=== PATIENT | female | born 1970 | race Caucasian/White ===

== ENCOUNTER 2017-11-16 11:03 | Emergency (ER) | payer OTHER, MEDICAID ==
[~2017-11-16] VITALS: Ht 172.7 cm; Wt 113.4 kg
[~2017-11-16 11:03] MED LIST: FLEXERIL PO; HYDROCODONE-APA1 TA1 PO; IBUPROFEN 600600 M1 PO; IBUPROFEN 800800 MG PO; LIORESAL 10 MG10 MG PO; MACROBID 100 M100 M1 PO; MACROBID 100 M100 M2 PO; NOHOMEMEDICATIONS; NORCO 5-325 TA1 EACH PO; PRENATAL PO; PROMETHAZINE-D120 ML PO; PROVENTIL HFA6.7 G1 INH; SINUS NASAL SPR30 M1 NS; TL-FOL 500 CAP1 EACH PO; VISTARIL 25 MG25 M1 PO; ZOFRAN 4 MG ORAL4 MG PO; ZOFRAN4 MG PO
[2017-11-16] MEDS ORDERED: IBUPROFEN 200200 M1 PO (11:36)
[2017-11-16 12:10] LABS: URINE BILIRUBIN NEGATIVE (Negative); URINE BLOOD TRACE (Negative); URINE CLARITY CLEAR; URINE COLOR YELLOW; URINE GLUCOSE-RANDOM NEGATIVE (Negative); URINE KETONES NEGATIVE (Negative); URINE LEUKOCYTES-REFLEX TRACE (Negative); URINE NITRITE-REFLEX NEGATIVE (Negative); URINE PROTEIN NEGATIVE (Negative); URINE UROBILINOGEN 0.2 E.U./dl (0.2-1.0)
[2017-11-16 12:15] LABS: CASTS None Seen /LPF (None Seen); CRYSTALS None Seen /LPF (None Seen); SQUAMOUS 0-3 Few /LPF (0-3); URINE RBC None Seen /HPF (0-2); URINE WBC-REFLEX None Seen /HPF (0-5)
[2017-11-16 12:30] LABS: ABSOLUTE BASOPHILS 0.1 thou/uL (0.0-0.2); ABSOLUTE EOSINOPHILS 0.3 thou/uL (0.0-0.7); ABSOLUTE LYMPHOCYTES 1.9 thou/uL (0.8-5.3); ABSOLUTE MONOCYTES 0.5 thou/uL (0.0-1.2); ABSOLUTE NEUTROPHILS 3.6 thou/uL (1.6-8.1); BASOPHILS 1.1 %; EOSINOPHILS 4.6 %; HEMATOCRIT 39.6 % (37.0-47.0); HEMOGLOBIN 13.1 gm/dL (12.0-15.0); LYMPHOCYTES 30.3 %; MCH 28.1 pg (26.0-34.0); MCHC 33.1 g/dL (28.0-37.0); MCV 84.9 fL (80.0-100.0); MONOCYTES 7.6 %; MPV 7.7 fl. (7.2-11.1); NUCLEATED RBCS 0 /100WBC; PLATELET COUNT* 217 thou/uL (150-400); POLYS 56.4 %; RBC 4.67 mil/uL (4.20-5.00); RDW-CV 14.8 % (10.5-14.5); WBC 6.3 thou/uL (4.0-11.0)
[2017-11-16 12:40] LABS: ANION GAP 3 mmol/L (7-16); BUN 9 mg/dL (7-18); CALCIUM 8.7 mg/dL (8.5-10.1); CHLORIDE 104 mmol/L (98-107); CO2 34 mmol/L (21-32); CREATININE 0.9 mg/dL (0.6-1.3); GLUCOSE 94 mg/dL (70-99); POTASSIUM 3.7 mmol/L (3.5-5.1); SODIUM 141 mmol/L (136-145)
[2017-11-16 12:47] LABS: ALBUMIN 3.3 g/dL (3.4-5.0); ALKALINE PHOSPHATASE 111 U/L (46-116); LIPASE 75 U/L (73-393); SGOT 16 U/L (15-37); SGPT 23 U/L (30-65); TOTAL BILIRUBIN 0.3 mg/dL (<0.1-1.0); TOTAL PROTEIN 7.4 g/dL (6.4-8.2); TROPONIN-I LEVEL <0.06 ng/mL (<0.06)
[2017-11-16] MEDS ORDERED: BACTRIM DS TAB1 EACH PO (13:17)
[2017-11-16] MEDS ORDERED: NORCO 5-325 TA1 EACH PO (13:17)
[2017-11-16] MEDS ORDERED: ZOFRAN ODT4 MG PO (13:17)
[2017-11-16 13:34] VITALS: BP 149/81
--- NOTE | 2017-11-17 12:44 | EKG ---
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
== END 2017-11-16 13:34 | disposition home or self-care (01) ==
LOC: M.ERS 11:03
PROVIDERS: Emergency Medicine Emergency Medical Services
DX: R10.13 Epigastric pain (principal); R10.11 Right upper quadrant pain; Z88.8 Allergy status to other drugs, medicaments and biological substances

== ENCOUNTER 2020-07-30 05:25 | Emergency (ER) | payer OTHER ==
[~2020-07-30] VITALS: Ht 172.7 cm; Wt 102.1 kg
[~2020-07-30 05:25] MED LIST changes: +BACTRIM DS TAB1 EACH PO; +IBUPROFEN 200200 M1 PO; +ZOFRAN ODT4 MG PO
[2020-07-30] MEDS ORDERED: TORADOL 10 MG T10 MG PO (06:15)
[2020-07-30] MEDS ORDERED: HYDROCODON-ACE1 EAC7 PO (06:15)
[2020-07-30] MEDS ORDERED: CYCLOBENZAPRINE5 MG PO (06:15)
[2020-07-30 06:39] VITALS: BP 119/80
== END 2020-07-30 06:39 | disposition home or self-care (01) ==
LOC: M.ERS 05:25
DX: M25.512 Pain in left shoulder (principal); M79.18 Myalgia, other site; Z88.8 Allergy status to other drugs, medicaments and biological substances

== ENCOUNTER 2021-02-09 03:04 | Emergency (ER) | payer OTHER, MEDICAID ==
[~2021-02-09] VITALS: Ht 172.7 cm; Wt 97.5 kg
[~2021-02-09 03:04] MED LIST changes: +CYCLOBENZAPRINE5 MG PO; +HYDROCODON-ACE1 EAC7 PO; +TORADOL 10 MG T10 MG PO
[2021-02-09 05:00] LABS: ABSOLUTE LYMPHOCYTES 0.7 thou/uL (0.8-5.3); ABSOLUTE MONOCYTES 0.3 thou/uL (0.0-1.2); ABSOLUTE NEUTROPHILS 2.1 thou/uL (1.6-8.1); BASOPHILS 0.7 %; HEMATOCRIT 39.2 % (37.0-47.0); HEMOGLOBIN 13.2 gm/dL (12.0-15.0); LYMPHOCYTES 22.2 %; MCH 28.5 pg (26.0-34.0); MCHC 33.6 g/dL (28.0-37.0); MCV 84.6 fL (80.0-100.0); MONOCYTES 8.8 %; MPV 7.7 fl. (7.2-11.1); NUCLEATED RBCS 0 /100WBC; PLATELET COUNT* 154 thou/uL (150-400); POLYS 68.3 %; RBC 4.63 mil/uL (4.20-5.00); RDW-CV 14.6 % (10.5-14.5); WBC 3.1 thou/uL (4.0-11.0)
[2021-02-09 05:13] LABS: CALCIUM 8.2 mg/dL (8.5-10.1); CREATININE 0.9 mg/dL (0.6-1.3)
[2021-02-09 05:18] LABS: ALBUMIN 3.1 g/dL (3.4-5.0); TOTAL BILIRUBIN 0.4 mg/dL (<0.1-1.0); TOTAL PROTEIN 7.3 g/dL (6.4-8.2)
[2021-02-09] MEDS ORDERED: PREDNISONE50 MG PO (06:22)
[2021-02-09] MEDS ORDERED: ZPAK PO (06:22)
[2021-02-09] MEDS ORDERED: ZOFRAN ODT4 MG PO (06:23)
[2021-02-09 06:28] VITALS: BP 88/50
== END 2021-02-09 06:28 | disposition home or self-care (01) ==
LOC: M.ERS 03:04
PROVIDERS: Personal Emergency Response Attendant
DX: U07.1 COVID-19 (principal); E86.0 Dehydration; Z88.8 Allergy status to other drugs, medicaments and biological substances

== ENCOUNTER 2021-02-13 20:44 | Inpatient (IN) | payer OTHER, MEDICAID ==
[~2021-02-13] VITALS: Ht 172.7 cm; Wt 126.1 kg
[~2021-02-13 20:44] MED LIST changes: +PREDNISONE50 MG PO; +ZPAK PO
[2021-02-13 20:52] VITALS: BP 123/76
[2021-02-13 21:55] LABS: ABSOLUTE LYMPHOCYTES 0.5 thou/uL (0.8-5.3); ABSOLUTE MONOCYTES 0.2 thou/uL (0.0-1.2); ABSOLUTE NEUTROPHILS 2.5 thou/uL (1.6-8.1); BASOPHILS 0.2 %; HEMOGLOBIN 14.3 gm/dL (12.0-15.0); LYMPHOCYTES 14.8 %; MCH 28.3 pg (26.0-34.0); MCHC 33.2 g/dL (28.0-37.0); MCV 85.3 fL (80.0-100.0); MONOCYTES 7.4 %; MPV 8.1 fl. (7.2-11.1); NUCLEATED RBCS 0 /100WBC; PLATELET COUNT* 128 thou/uL (150-400); POLYS 77.6 %; RBC 5.04 mil/uL (4.20-5.00); RDW-CV 14.7 % (10.5-14.5); WBC 3.2 thou/uL (4.0-11.0)
[2021-02-13 22:02] LABS: CALCIUM 8.4 mg/dL (8.5-10.1); CREATININE 0.9 mg/dL (0.6-1.3)
[2021-02-13 22:05] LABS: INR 1.1; PROTIME 11.7 Seconds (9.20-11.50)
[2021-02-13 22:13] LABS: ALBUMIN 3.1 g/dL (3.4-5.0); MAGNESIUM 2.2 mg/dL (1.8-2.4); TOTAL BILIRUBIN 0.8 mg/dL (<0.1-1.0); TOTAL PROTEIN 7.7 g/dL (6.4-8.2)
[2021-02-14 00:50] LABS: URINE BLOOD 1+ (Negative); URINE COLOR YELLOW; URINE GLUCOSE-RANDOM NEGATIVE (Negative); URINE KETONES 1+ (Negative); URINE NITRITE-REFLEX NEGATIVE (Negative); URINE PROTEIN TRACE (Negative); URINE SPECIFIC GRAVITY 1.025 (1.005-1.030)
[2021-02-14 00:57] LABS: ICTOTEST (BILI CONFIRMATORY) Negative (Negative); URINE BILIRUBIN 1+ (Negative); URINE CLARITY SL CLOUDY; URINE LEUKOCYTES-REFLEX 2+ (Negative)
[2021-02-14 00:59] LABS: SQUAMOUS >10 Many /LPF (0-3)
[2021-02-14 01:00] LABS: BACTERIA-REFLEX >30 Many /HPF (None Seen); CASTS None Seen /LPF (None Seen); CRYSTALS None Seen /LPF (None Seen); MUCUS 4-6 Moderate strn/LPF (None Seen); TRANSITIONAL EPITHEL CELL 0-3 Few /LPF (None Seen); URINE RBC 3-10 Few /HPF (0-2); URINE WBC-REFLEX 6-15 Few /HPF (0-5)
[2021-02-14 03:31] VITALS: BP 101/58
--- NOTE | 2021-02-14 10:22 | EKG ---
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
[2021-02-14 12:05] VITALS: BP 114/63
[2021-02-14 12:15] VITALS: BP 124/68
[2021-02-14 16:00] VITALS: BP 127/77
[2021-02-14 19:35] VITALS: BP 135/70
[2021-02-15] VITALS: BP 158/79
[2021-02-15 04:00] VITALS: BP 151/82
[2021-02-15 04:59] LABS: HEMATOCRIT 38.9 % (37.0-47.0); HEMOGLOBIN 12.9 gm/dL (12.0-15.0); MCH 28.1 pg (26.0-34.0); MCHC 33.1 g/dL (28.0-37.0); MCV 84.8 fL (80.0-100.0); RBC 4.59 mil/uL (4.20-5.00); RDW-CV 14.7 % (10.5-14.5); WBC 4.9 thou/uL (4.0-11.0)
[2021-02-15 05:07] LABS: CALCIUM 8.5 mg/dL (8.5-10.1); CREATININE 0.7 mg/dL (0.6-1.3); POTASSIUM 3.7 mmol/L (3.5-5.1)
[2021-02-15 08:00] VITALS: BP 143/77
[2021-02-15 11:55] VITALS: BP 128/74
[2021-02-15 16:00] VITALS: BP 109/62
[2021-02-15 19:50] VITALS: BP 133/70
[2021-02-16 04:00] VITALS: BP 152/93
[2021-02-16 04:41] LABS: HEMOGLOBIN 12.6 gm/dL (12.0-15.0); MCH 28.1 pg (26.0-34.0); MCHC 33.3 g/dL (28.0-37.0); MCV 84.3 fL (80.0-100.0); MPV 8.6 fl. (7.2-11.1); RBC 4.5 mil/uL (4.20-5.00); RDW-CV 14.9 % (10.5-14.5); WBC 6.6 thou/uL (4.0-11.0)
[2021-02-16 04:54] LABS: CALCIUM 8.6 mg/dL (8.5-10.1); CREATININE 0.8 mg/dL (0.6-1.3); POTASSIUM 3.8 mmol/L (3.5-5.1)
[2021-02-16 08:00] VITALS: BP 125/71
[2021-02-16 12:46] VITALS: BP 130/75
[2021-02-16 17:27] VITALS: BP 125/75
[2021-02-16 20:00] VITALS: BP 122/81
[2021-02-17 00:37] VITALS: BP 105/61
[2021-02-17 04:00] VITALS: BP 109/51
[2021-02-17 05:01] LABS: HEMATOCRIT 39.1 % (37.0-47.0); HEMOGLOBIN 13.1 gm/dL (12.0-15.0); MCH 28.2 pg (26.0-34.0); MCHC 33.4 g/dL (28.0-37.0); MCV 84.6 fL (80.0-100.0); MPV 8.6 fl. (7.2-11.1); RBC 4.62 mil/uL (4.20-5.00); RDW-CV 14.9 % (10.5-14.5); WBC 8.7 thou/uL (4.0-11.0)
[2021-02-17 05:14] LABS: CALCIUM 8.4 mg/dL (8.5-10.1); CREATININE 0.6 mg/dL (0.6-1.3); POTASSIUM 3.7 mmol/L (3.5-5.1)
[2021-02-17 08:30] VITALS: BP 126/67
[2021-02-17] MEDS ORDERED: CEFDINIR300 MG PO (12:26)
[2021-02-17] MEDS ORDERED: PREDNISONE 10 M10 MG PO (12:26)
[2021-02-17] MEDS ORDERED: VENTOLIN HFA 1818 GM INH (12:26)
[2021-02-17 13:02] VITALS: BP 126/67
[2021-02-17] MEDS ORDERED: ONDANSETRON HCL4 M2 PO (13:32)
[2021-02-17] MEDS ORDERED: PHENERGAN 25 MG25 M1 PO (13:32)
== END 2021-02-17 15:08 | disposition home or self-care (01) | DRG 177 ==
LOC: M.ERS 20:44 → M.TBA-ER 23:19 → M.2W 02-14 12:15
PROVIDERS: Emergency Medicine; Internal Medicine; ADMIT Internal Medicine; ATTEND Internal Medicine
PROC: XW033E5 Introduction of Remdesivir Anti-infective into Peripheral Vein, Percutaneous Approach, New Technology Group 5 (ICD-10-PCS; principal; 2021-02-14)
PROC: XW13325 Transfusion of Convalescent Plasma (Nonautologous) into Peripheral Vein, Percutaneous Approach, New Technology Group 5 (ICD-10-PCS; principal; 2021-02-14)
DX: U07.1 COVID-19 (principal); J12.82 Pneumonia due to coronavirus disease 2019; E87.6 Hypokalemia; Z88.8 Allergy status to other drugs, medicaments and biological substances; Z79.899 Other long term (current) drug therapy

== ENCOUNTER 2021-11-03 10:35 | Emergency (ER) | payer OTHER, MEDICAID ==
[~2021-11-03] VITALS: Ht 172.7 cm; Wt 131.5 kg
[~2021-11-03 10:35] MED LIST changes: +CEFDINIR300 MG PO; +ONDANSETRON HCL4 M2 PO; +PHENERGAN 25 MG25 M1 PO; +PREDNISONE 10 M10 MG PO; +VENTOLIN HFA 1818 GM INH
[2021-11-03] MEDS ORDERED: MEDROLDOSEPACK PO (11:39)
[2021-11-03] MEDS ORDERED: NORFLEX100 MG PO (11:39)
[2021-11-03 11:58] VITALS: BP 160/74
== END 2021-11-03 11:58 | disposition home or self-care (01) ==
LOC: M.ERS 10:35
DX: M54.50 Low back pain, unspecified (principal); R11.0 Nausea; Z79.899 Other long term (current) drug therapy; Z79.2 Long term (current) use of antibiotics; Z88.8 Allergy status to other drugs, medicaments and biological substances; W00.0XXA Fall on same level due to ice and snow, initial encounter; Y93.89 Activity, other specified; Y92.89 Other specified places as the place of occurrence of the external cause; Y99.8 Other external cause status